=== PATIENT | female | born 1980 | race African-American/Black ===

== ENCOUNTER 2019-09-11 06:28 | Observation (INO) | payer OTHER, SELFPAY ==
[2019-09-11] VITALS (27 sets, daily range): BP systolic 120–150; BP diastolic 53–90; PULSE 80–85; RESP 20; TEMP 36.7–36.8; O2SAT 96–100; BMI 70.4
--- NOTE | ~2019-09-11 | US_ITS ---
US right upper quadrant INDICATION: Right upper quadrant pain PROCEDURE: Realtime right upper abdominal ultrasound. COMPARISON: CT dated 11/11/2011 and ultrasound dated 11/11/2011 FINDINGS: Pancreas is echogenic, nonspecific. No discrete pancreatic mass identified. Liver echotext ure is increased, consistent with hepatic steatosis. There is normal directional flow in the portal vein. There are gallstones. Common bile duct measures 6 mm. No sonographic Soliman's sign. IMPRESSION: 1: Cholelithiasis. 2: Hepatic steatosis. Reviewed, dictated and finalized at location A.
--- NOTE | ~2019-09-11 | NM_ITS ---
EXAMINATION: NM hepatobiliary w pharm DATE: 09/11/2019 16:42 INDICATION: Epigastric pain. COMPARISON: None. TECHNIQUE: 4.8 mCi Tc-99m mebrofenin (Choletec) was administered intravenously. Scintigraphic images of the abdomen were obtained for one hour. 3.8 mcg sincalide (Kinevac) was administered by slow intr avenous infusion, and imaging was continued for 30 minutes. Gallbladder ejection fraction was calcula gerson by the technologist. FINDINGS: There is normal clearance of radiotracer from the blood pool. There is homogeneous tracer uptake by t he liver. Activity progresses to the gallbladder and bowel. The gallbladder ejection fraction (GBEF) is 0% (normal 10-90%, but most patient with gallbladder dysfunction have GBEF < 35% which does overl ap with the normal range). IMPRESSION: 1. Decreased gallbladder ejection fraction which can be seen with gallbladder dysfunction or chronic cholecystitis in the appropriate clinical setting. Reviewed, dictated and finalized at location A.
[2019-09-11 07:07] LABS: Basophils Percent Auto 0.5 % (0.2-1.2); Eosinophils Absolute Auto 0.1 K/mm3 (0-0.3); Eosinophils Percent Auto 2.5 % (0-4.4); Hematocrit 37.9 % (37.0-47.0); Hemoglobin 11.8 g/dL (12.0-15.0); Immature Granulocyte Absolute 0.02 K/mm3 (0.00-0.031); Immature Granulocyte Percent A 0.4 % (0-0.5); Lymphocytes Absolute Auto 1.64 K/mm3 (0.9-3.2); Lymphocytes Percent Auto 29.4 % (18.3-44.2); Mean Corpuscular HGB Conc 31.1 g/dl (32-36); Mean Corpuscular Hemoglobin 27.8 pg (26-34); Mean Corpuscular Volume 89.2 fl (80-100); Mean Platelet Volume 9.8 fl (7.4-10.4); Monocytes Absolute Auto 0.4 K/mm3 (0.1-0.6); Monocytes Percent Auto 6.6 % (2.6-8.5); Neutrophils Absolute Auto 3.4 K/mm3 (1.3-6.7); Neutrophils Percent Auto 60.6 % (45.5-73.1); Platelet Count Result 368 k/mm3 (150-375); Red Blood Count 4.25 M/mm3 (4.2-5.4); Red Cell Distribution Width 16.4 % (11.5-14.5); White Blood Count 5.6 K/mm3 (4.5-10.0)
[2019-09-11 07:25] LABS: Alanine Aminotransferase 492 U/L (4-35); Albumin Level 4.1 g/dL (3.5-5.1); Alkaline Phosphatase 167 U/L (38-126); Aspartate Amino Transferase 452 U/L (14-36); Bilirubin,Total 1.1 mg/dL (0.2-1.3); Blood Urea Nitrogen 8 mg/dL (7-17); Calcium 8.5 mg/dL (8.4-10.2); Carbon Dioxide 35 mmol/L (22-30); Chloride 100 mmol/L (98-107); Estimated Glomerular Filt Rate > 60; Glucose 164 mg/dL (65-105); Lipase 116 U/L (23-300); Potassium 3.5 mmol/L (3.4-5.0); Sodium 138 mmol/L (137-145)
--- NOTE | 2019-09-11 07:38 | ED.ABDPAIN ---
HPI - Abdominal Pain General Chief Complaint: Abdominal Pain Stated Complaint: abd pain Time Seen by Provider: 09/11/19 07:06 History of Present Illness HPI narrative: Patient is a 39-year-old female who presents the ER with epigastric/right upper quadrant abdominal pain. Ongoing for the last 2 to 3 days. Currently 6/10 on a pain scale. Radiates to her back. Occasionally worsens with eating. Reports mild improvement when she takes Aleve or Tylenol. She decided to get evaluated because she also takes Coumadin and if she takes Aleve for too long that could be problematic. Patient reports she has known cholelithiasis and is going to have a cholecystectomy when she has a weight loss surgery in December in [facility]. Patient reports no fevers or chills or sweats. She has been without nausea or vomiting. Sometimes pain improves with passing gas. Related Data Home Medications Medication Instructions Recorded Confirmed aspirin 81 mg PO DAILY 09/11/19 09/11/19 bupropion HCl 100 mg PO BID 09/11/19 09/11/19 furosemide 80 mg PO BID 09/11/19 09/11/19 losartan 50 mg PO DAILY 09/11/19 09/11/19 metoprolol tartrate 50 mg PO BID 09/11/19 09/11/19 potassium chloride 20 meq PO BID 09/11/19 09/11/19 warfarin 12.5 mg PO DAILY 09/11/19 09/11/19 Allergies Allergy/AdvReac Type Severity Reaction Status Date / Time latex Allergy Unknown Rash Verified 09/11/19 07:54 Review of Systems Review of Systems: All systems reviewed & are unremarkable except as noted in HPI and below Constitutional: Constitutional: Denies chills and Denies fever(s) ENT: Denies nasal congestion and Denies sore throat Cardiovascular: Cardiovascular: Denies chest pain and Denies radiating jaw, neck or arm pain Respiratory: Respiratory: Denies cough, Denies dyspnea and Denies wheezing Gastrointestinal: Gastrointestinal: Reports abdominal pain, Denies diarrhea, Denies nausea and Denies vomiting Genitourinary: Genitourinary: Denies hematuria, Denies nocturia and Denies dysuria [facility] Past Medical History Medical History (Updated 09/11/19 @ 18:36 by Zeb Dsouza MD) Chronic anemia Surgical History Surgical History (Updated 09/11/19 @ 07:42 by Zeb Dsouza MD) History of section History of mitral valve replacement with mechanical valve Family History Family History (Updated 09/11/19 @ 12:56 by Nikki Canales RN) Mother Hypertension Social History Social History (Updated 09/11/19 @ 07:42 by Zeb Dsouza MD) Smoking status: Never smoker Second hand tobacco smoke exposure: Yes Alcohol intake: current Drinks per week: 2 Substance use: never Gender identity (if verbalized by the patient): Female Spiritual care concerns: No Exam Narrative: Exam Narrative: GENERAL: Well-appearing, morbidly obese, and in no acute distress. HEAD: Normocephalic, atraumatic. CHEST: Clear to auscultation. No respiratory distress. HEART: Regular rate and rhythm. Mechanical clicking of the mitral valve. Normal peripheral pulses. ABDOMEN: Soft, moderate tenderness in right upper quadrant and tenderness with guarding, nondistended, normal active bowel sounds. EXTREMITIES: Normal range of motion. No edema. SKIN: Warm, dry, no rash. NEURO: Alert and oriented x3. PSYCH: Normal mood and affect. Course Course Emergency Course: Patient with persistent pain on reexam. Discussed with Dr. Allen. Admit for obvious and HIDA scan given significant elevation in hepatic enzymes. Vital Signs Vital signs: Vital Signs Temperature 98.1 F 09/11/19 06:36 Pulse Rate 85 09/11/19 06:36 Respiratory Rate 09/11/19 06:36 Blood Pressure 150/90 H 09/11/19 06:36 Pulse Oximetry 100 09/11/19 06:36 Temperature 98.2 F 09/11/19 13:16 Pulse Rate 80 09/11/19 13:16 Respiratory Rate 09/11/19 13:16 Blood Pressure 138/89 09/11/19 13:16 Pulse Oximetry 100 09/11/19 13:16 MDM - Abdominal Pain Lab Data
[2019-09-11] MEDS: MORPHINE SULFATE 4 MG/ML INJ IV PUSH (07:49)
[2019-09-11 07:56] LABS: INR 4.3; Prothrombin Time 40.7 Seconds (11.1-14.7)
[2019-09-11 08:05] LABS: Partial Thromboplastin Time 35.1 SECONDS (22.3-36.8)
[2019-09-11 09:11] LABS: Add Urine Microscopic? YES; Appearance Urine Cloudy (Clear); Bacteria Urine 3+ /hpf; Bilirubin Urine 1+ (Negative); Calcium Oxalate Crystals Urine Many /hpf; Color Urine Amber (Yellow); Glucose Urine UA Negative (Negative); Ketones Urine Negative (Negative); Leukocyte Esterase Ur Negative LEU/UL (Negative); Mucus Urine Moderate /lpf; Nitrate Urine Negative (Negative); Protein Urine 2+ mg/dL (Negative); Squamous Epithelial Cell Urine Many /hpf (Few)
[2019-09-11 09:14] LABS: Blood Urine Negative (Negative)
[2019-09-11 09:40] LABS: Monoscreen Negative (Negative); Negative Monotest Control Negative (Negative); Positive Monotest Control Positive (Positive)
[2019-09-11 10:08] LABS: Hepatitis B Surface Antigen Negative (Negative)
[2019-09-11 10:13] LABS: HAV RESULT Negative (Negative); Hepatitis B Core IgM Result Negative (Negative)
[2019-09-11 10:25] LABS: Hepatitis C Virus Antibody Negative (Negative)
--- NOTE | 2019-09-11 12:10 | PC.NURSE ---
This patient, Mary Batista, was admitted to Medical Room 250-01. Patient/family oriented to hospital policies and general routines including ID bracelet, bed and alarms, visiting hours, pain management, procedures, bathroom and other care routines, personal items, smoking policy, room service/diet, and visiting hours. Valuables list has been completed. Information on how to activate the Rapid Response Team has been discussed. Patient/Family are encouraged to report perceived risks to care and to ask questions if they do not understand what they are told or what they should do.
--- NOTE | 2019-09-11 13:25 | PC.NURSE ---
Call to oil house attendant Ramiro Rueda for assistance with new peripheral IV placement. Per oil house attendant he will be to floor.
[2019-09-11] MEDS: SODIUM CHLORIDE 0.9% IV 1,000 ML 125 ML IV CONT (16:44)
--- NOTE | 2019-09-11 17:22 | PC.NURSE ---
Patient requesting to leave against medical advice at this time. Voicing concerns she does not feel comfortable at this hospital with her pastor being at outside facility. Encouraged patient to stay and explained if she chooses to leave hospital at this time it is considered against medical advice of the doctor and she could sustain injury from such discharge. Patient was informed if she leaves facility her condition may worsen and she could experience permanent injuries or even . Risks and potential damages discussed. PIV discontinued and patient signed document for leaving against medical advice. Shelley Lang NP notified of patient signing AMA paperwork.
--- NOTE | 2019-09-11 18:05 | PC.NURSE ---
Patient left AMA at 1805. Ambulated to personal vehicle for transport.
== END 2019-09-11 18:05 | disposition left against medical advice (07) ==
LOC: ANHED 07:06 → ANH2MED 11:58
PROVIDERS: General Practice; Admitting Provider Family Medicine; Emergency Provider Emergency Medicine; Visit Provider Family Medicine
DX: K80.20 Calculus of gallbladder without cholecystitis without obstruction (principal); K76.0 Fatty (change of) liver, not elsewhere classified; R74.0 Nonspecific elevation of levels of transaminase and lactic acid dehydrogenase [LDH]; Z79.01 Long term (current) use of anticoagulants
CPT/HCPCS: 36415; 76705; 78227; 80053; 80074; 81001; 81025; 83690; 85025; 85610; 85730; 86308; 87086; 87088; 96374; 99285; A9537; G0378; G0379; J2270; J2805; J7030

== ENCOUNTER → 2019-10-13 13:26 | Outpatient (CLI) | payer OTHER, SELFPAY ==
--- NOTE | ~2019-10-13 | XR_ITS ---
EXAMINATION: XR chest 2V DATE: 10/13/2019 13:54 INDICATION: Cardiomegaly. Preop. TECHNIQUE: Frontal and lateral views of the chest were obtained on 3 radiographs. COMPARISON: Chest CT 02/19/2018, chest 2 views 12/23/2018 FINDINGS: There is no pneumonia, pleural effusion, or pneumothorax. The heart size is normal. There a re changes of heart valve replacement. IMPRESSION: 1. Cardiomegaly. Reviewed, dictated and finalized at location A. IMPRESSION: 1. Cardiomegaly.
== END ==
DX: I10 Essential (primary) hypertension (principal); I51.7 Cardiomegaly; D50.9 Iron deficiency anemia, unspecified; I34.0 Nonrheumatic mitral (valve) insufficiency; E66.01 Morbid (severe) obesity due to excess calories
CPT/HCPCS: 71046

== ENCOUNTER 2019-10-26 01:41 | Outpatient (CLI) | payer OTHER, SELFPAY ==
[2019-10-26 19:35] LABS: SARS-CoV-2 RNA PCR Negative
== END 2019-10-26 01:42 | disposition home or self-care (01) ==
LOC: ANHCOVIDDT 01:41
DX: Z01.812 Encounter for preprocedural laboratory examination (principal); Z11.59 Encounter for screening for other viral diseases
CPT/HCPCS: 87635; C9803; U0003

== ENCOUNTER 2019-11-17 07:56 | Outpatient (CLI) | payer OTHER, SELFPAY ==
--- NOTE | 2019-11-17 | ECG_ITS ---
Measurements Intervals [place] Rate: 86 P: 77 CO: 148 QRS: -1 QRSD: 94 T: 94 QT: 396 QTc: 476 Interpretive Statements SINUS RHYTHM WITH SINUS ARRHYTHMIA DELAYED PRECORDIAL R/S TRANSITION NONSPECIFIC ST & T-WAVE ABNORMALITY- HIGH LATERAL LEADS BASELINE WANDER- I, II, III, V1-V2 BORDERLINE ECG Electronically Signed On 11-17-2019 10:10:33 CDT by Ari Dave D.O.
== END 2019-11-17 07:57 | disposition home or self-care (01) ==
DX: I10 Essential (primary) hypertension (principal); D50.9 Iron deficiency anemia, unspecified; I34.0 Nonrheumatic mitral (valve) insufficiency; E66.01 Morbid (severe) obesity due to excess calories; Z68.45 Body mass index [BMI] 70 or greater, adult
CPT/HCPCS: 93005

== ENCOUNTER 2019-11-18 11:44 | Outpatient (CLI) | payer OTHER, SELFPAY ==
[2019-11-18 13:50] LABS: Iron 51 ug/dL (37-170)
[2019-11-18 14:02] LABS: Percent Iron Saturation 11 % (20-50)
[2019-11-18 14:24] LABS: Folic Acid 5.8 ng/mL (2.76->20)
== END 2019-11-18 11:45 | disposition home or self-care (01) ==
LOC: ANHLAB 11:48
DX: E11.9 Type 2 diabetes mellitus without complications (principal); D64.9 Anemia, unspecified
CPT/HCPCS: 36415; 82607; 82746; 83540; 83550; 84681

== ENCOUNTER 2019-12-25 02:04 | Outpatient (CLI) | payer OTHER, SELFPAY ==
[2019-12-25 17:59] LABS: SARS-CoV-2 RNA PCR Negative
== END 2019-12-25 02:05 | disposition home or self-care (01) ==
LOC: ANHCOVIDDT 02:05
PROVIDERS: Visit Provider Internal Medicine Critical Care Medicine
DX: Z01.812 Encounter for preprocedural laboratory examination (principal); Z20.828 Contact with and (suspected) exposure to other viral communicable diseases
CPT/HCPCS: 87635; C9803; U0003

== ENCOUNTER 2020-01-08 00:51 | Outpatient (CLI) | payer OTHER, SELFPAY ==
[2020-01-08 17:37] LABS: SARS-CoV-2 RNA PCR Negative
== END 2020-01-08 00:52 | disposition home or self-care (01) ==
LOC: ANHCOVIDDT 00:52
PROVIDERS: Visit Provider Internal Medicine Critical Care Medicine
DX: Z01.812 Encounter for preprocedural laboratory examination (principal); Z20.828 Contact with and (suspected) exposure to other viral communicable diseases
CPT/HCPCS: 87635; C9803; U0003

== ENCOUNTER 2020-01-11 11:03 | Outpatient (CLI) | payer OTHER, SELFPAY ==
--- NOTE | 2020-02-07 08:40 | WPDSLEEPSTUD ---
Sleep Study Date of Study: 01/11/20 Ordering Provider: Lyric Ann APRN Interpreting Physician: Whitney Menon MD Sleep Study Type: CPAP Titration Height: 1.7 m Weight: 184.159 kg Body Mass Index: 63.6 Neck Circumference: 50.8 cm Kinta: 8 Reason for Sleep Study History of sleep apnea, now having bariatric surgery and having a sleep study as part of this process [facility] in [facility] sleep study on 10/29/2019 showed AHI of 24 per hour, 29% of the night spent with oxygen saturation below 90%, lowest saturation 62%. APAP was recommended. Sleep History Mary Batista is a 39 year old female with a prior history of sleep apnea. She is having bariatric surgery and required having a sleep study as part of the process. She has been on CPAP in the past. She does not awaken from sleep feeling short of breath, rarely awakens at night with heartburn and belching or coughing. She occasionally snores, it is never loud enough that others complain about it. She occasionally has trouble sleep with a cold. She rarely wakes up gasping for breath at night. She does not have breathing problems at night observed by others. She does not sweat excessively at night. She does not notice her heart pounding or beating irregularly at night. She frequently falls asleep during the day, rarely involuntarily, never while driving. She does not fall asleep during physical effort, does not have loss of muscle tone with strong emotion, does not have daytime difficulties due to excessive sleepiness and does not feel paralyzed on waking or falling asleep. She occasionally has vivid dreamlike scenes upon awakening or falling asleep. She is never afraid to go to sleep. She does not have nightmares. She occasionally remembers her dreams. She does not have racing thoughts. She occasionally feels sad or depressed. She frequently has anxiety. She frequently has muscular tension. She does not notice parts of her body jerking, she does not kick at night, does not have probably aching feelings in her legs and does not have leg pain at night. She does not have morning jaw pain. She frequently grinds her teeth during sleep. She occasionally has bothered by pain during the day but never wakes up with pain during the night. She occasionally wakes up feeling stiff in the morning was sore achy muscles. She does not have pain in the neck and spine. She has headaches fatigue and insomnia. Normal bedtime is 12 midnight to 1:00 a.m. taking about an hour to fall asleep. She wakes for 5 times for urination. She wakes the morning at 5:00 a.m.. On the weekends she stays up an hour later goes to bed at 1 or 2:00 a.m. and wakes up at 7:00 a.m.. She does take naps. A short nap may be refreshing. Habits: Caffeine 1 cup of coffee a day. Alcohol 1 glass at night. She is a never smoker but is exposed to secondhand smoke. [facility] Past Medical History Medical History (Updated 02/07/20 @ 09:01 by Whitney Menon MD) Anxiety Chronic anemia Depression Hypertension Surgical History Surgical History (Updated 02/07/20 @ 08:56 by Whitney Menon MD) History of section History of mitral valve replacement with mechanical valve 04/22/2018 S/P tubal ligation Family History Family History (Updated 02/07/20 @ 08:57 by Whitney Menon MD) Mother Hypertension Grandparent Diabetes mellitus FH: lung cancer Rheumatoid arthritis Social History Social History Smoking status: Never smoker Second hand tobacco smoke exposure: Yes Alcohol intake: current Drinks per week: 2 Substance use: never Gender identity (if verbalized by the patient): Female Spiritual care concerns: No Medications Home Medications Medication Instructions Recorded Confirmed Type aspirin 81 mg PO DAILY 09/11/19 09/11/19 History bupropion HCl 100 mg PO BID 09/11/19 09/11/19 History furosemide
[2020-02-07 09:10] VITALS: BMI 63.6
== END 2020-01-11 11:04 ==
LOC: ANHCSM 03-15 11:04
DX: G47.33 Obstructive sleep apnea (adult) (pediatric) (principal)
CPT/HCPCS: 95811

== ENCOUNTER 2020-04-28 10:07 | Outpatient (CLI) | payer OTHER, SELFPAY ==
[2020-04-28 10:38] LABS: Basophils Percent Auto 0.4 % (0.2-1.2); Eosinophils Absolute Auto 0.1 K/mm3 (0-0.3); Eosinophils Percent Auto 1.1 % (0-4.4); Hematocrit 37.6 % (37.0-47.0); Hemoglobin 11.4 g/dL (12.0-15.0); Immature Granulocyte Absolute 0.03 K/mm3 (0.00-0.031); Immature Granulocyte Percent A 0.4 % (0-0.5); Lymphocytes Absolute Auto 2.03 K/mm3 (0.9-3.2); Mean Corpuscular HGB Conc 30.3 g/dl (32-36); Mean Corpuscular Hemoglobin 26.1 pg (26-34); Mean Platelet Volume 9.9 fl (7.4-10.4); Monocytes Absolute Auto 0.4 K/mm3 (0.1-0.6); Monocytes Percent Auto 5.7 % (2.6-8.5); Neutrophils Absolute Auto 4.9 K/mm3 (1.3-6.7); Neutrophils Percent Auto 65.4 % (45.5-73.1); Platelet Count Result 389 k/mm3 (150-375); Red Blood Count 4.37 M/mm3 (4.2-5.4); Red Cell Distribution Width 17.2 % (11.5-14.5); White Blood Count 7.5 K/mm3 (4.5-10.0)
[2020-04-28 15:47] LABS: Add Urine Microscopic? YES; Appearance Urine Clear (Clear); Bilirubin Urine Negative (Negative); Blood Urine Negative (Negative); Color Urine Yellow (Yellow); Glucose Urine UA Negative (Negative); Ketones Urine Negative (Negative); Leukocyte Esterase Ur 1+ LEU/UL (NEGATIVE); Mucus Urine Rare /lpf; Nitrate Urine Negative (Negative); Protein Urine Negative (Negative); RBC Urine 0-2 /hpf (0-2); Specific Grav Ur 1.018 (1.001-1.035); Squamous Epithelial Cell Urine Moderate /hpf (Few); Urobilinogen Urine Negative mg/dL (<2.0); WBC Urine 51-75 /hpf (0-3)
[2020-04-28 16:41] LABS: Hemoglobin A1C 7.2 % (<5.7)
[2020-04-28 16:51] LABS: Alanine Aminotransferase 31 U/L (4-35); Alkaline Phosphatase 83 U/L (38-126); Anion Gap 7 mmol/L (8-16); Aspartate Amino Transferase 37 U/L (14-36); Bilirubin,Total 0.4 mg/dL (0.2-1.3); Blood Urea Nitrogen 12 mg/dL (7-17); Carbon Dioxide 29 mmol/L (22-30); Chloride 103 mmol/L (98-107); Estimated Glomerular Filt Rate > 60; Glucose 150 mg/dL (65-105); Potassium 3.9 mmol/L (3.4-5.0); Sodium 139 mmol/L (137-145)
== END 2020-04-28 10:08 | disposition home or self-care (01) ==
DX: D64.9 Anemia, unspecified (principal); E11.9 Type 2 diabetes mellitus without complications; I10 Essential (primary) hypertension; D50.9 Iron deficiency anemia, unspecified; E66.01 Morbid (severe) obesity due to excess calories; G47.30 Sleep apnea, unspecified
CPT/HCPCS: 36415; 80053; 81001; 83036; 85025; 93005

== ENCOUNTER 2020-04-28 10:52 | Outpatient (CLI) | payer OTHER, SELFPAY ==
--- NOTE | 2020-04-28 11:07 | ECG_ITS ---
Measurements Intervals [place] Rate: 89 P: 59 HI: 165 QRS: 6 QRSD: 91 T: 109 QT: 419 QTc: 510 Interpretive Statements SINUS RHYTHM BORDERLINE ST-T WAVE ABNORMALITY- HIGH LATERAL LEADS BASELINE ARTIFACT- I, V3 BORDERLINE ECG Electronically Signed On 04-28-2020 11:22:53 [employer] by Ari Dave D.O.
== END 2020-04-28 10:53 | disposition home or self-care (01) ==
LOC: ANHCARD 10:56
DX: D50.9 Iron deficiency anemia, unspecified (principal); E66.01 Morbid (severe) obesity due to excess calories; G47.30 Sleep apnea, unspecified
CPT/HCPCS: 93005

== ENCOUNTER 2020-05-18 18:53 | Emergency (ER) | payer OTHER, SELFPAY ==
--- NOTE | ~2020-05-18 | XR_ITS ---
EXAMINATION: XR chest 1V portable DATE: 05/18/2020 20:18 INDICATION: Fatigue. TECHNIQUE: A single frontal view of the chest was obtained. COMPARISON: Chest 2 views 10/13/2019 FINDINGS: There is no pneumonia, pleural effusion, or pneumothorax. Cardiomegaly is noted. There are changes of heart valve replacement. IMPRESSION: 1. Cardiomegaly. Reviewed, dictated and finalized at location A. SQUEAK CHALKER IMPRESSION: 1. Cardiomegaly.
--- NOTE | ~2020-05-18 | CT_ITS ---
EXAMINATION: CT brain wo con DATE: 05/18/2020 21:45 INDICATION: Right-sided headache. TECHNIQUE: Computed tomography (CT) of the head was performed without intravenous contrast. The mA wa s adjusted according to patient size. Iterative reconstruction technique was employed. The dose-lengt h product was 681.00 mGy-cm. COMPARISON: Head CT 03/07/2013 FINDINGS: There is no intracranial hemorrhage, acute infarction, or abnormal intracranial mass lesion . The ventricles are normal in size. The orbits are normal. The paranasal sinuses are clear. The mast oid air cells are normal. IMPRESSION: 1. Normal brain. Reviewed, dictated and finalized at location A. [employer] IMPRESSION: 1. Normal brain.
[2020-05-18 18:59] VITALS: BP 123/73; PULSE 78; RESP 18; TEMP 36.1; O2SAT 98
--- NOTE | 2020-05-18 20:03 | ECG_ITS ---
Measurements Intervals [place] Rate: 77 P: 57 FL: 165 QRS: -1 QRSD: 94 T: 120 QT: 408 QTc: 464 Interpretive Statements SINUS RHYTHM VENTRICULAR PREMATURE COMPLEX DELAYED PRECORDIAL R/S TRANSITION BORDERLINE ST-T WAVE ABNORMALITY- HIGH LATERAL LEADS BASELINE ARTIFACT- I, III, AVR, AVL, V1 BORDERLINE ECG Electronically Signed On 05-19-2020 6:46:13 [employer] by Ari Dave D.O.
[2020-05-18 20:51] LABS: Basophils Percent Auto 0.5 % (0.2-1.2); Eosinophils Absolute Auto 0.1 K/mm3 (0-0.3); Eosinophils Percent Auto 1.2 % (0-4.4); Hematocrit 39.9 % (37.0-47.0); Hemoglobin 12.4 g/dL (12.0-15.0); Immature Granulocyte Absolute 0.02 K/mm3 (0.00-0.031); Immature Granulocyte Percent A 0.3 % (0-0.5); Lymphocytes Absolute Auto 2.04 K/mm3 (0.9-3.2); Lymphocytes Percent Auto 30.8 % (18.3-44.2); Mean Corpuscular HGB Conc 31.1 g/dl (32-36); Mean Corpuscular Hemoglobin 26.8 pg (26-34); Mean Corpuscular Volume 86.2 fl (80-100); Mean Platelet Volume 10.3 fl (7.4-10.4); Monocytes Absolute Auto 0.5 K/mm3 (0.1-0.6); Monocytes Percent Auto 6.8 % (2.6-8.5); Neutrophils Percent Auto 60.4 % (45.5-73.1); Platelet Count Result 348 k/mm3 (150-375); Red Blood Count 4.63 M/mm3 (4.2-5.4); Red Cell Distribution Width 17.5 % (11.5-14.5); White Blood Count 6.6 K/mm3 (4.5-10.0)
--- NOTE | 2020-05-18 20:53 | ED.GENADULT ---
HPI - General Adult General Chief complaint: Unspecified Stated complaint: feel like im dehydrated Time Seen by Provider: 05/18/20 19:56 Source: patient Mode of arrival: ambulatory Limitations: no limitations History of Present Illness HPI narrative: This is a 40 year old female with history of DM, hypertension, morbid obesity, mitral valve replacement on coumadin who presents for evaluation of possible dehydration. She is scheduled for weight loss surgery on Friday. She has been on a mostly liquid diet for 2 weeks. She states she is not drinking the protein shakes that she was instructed to drink. Her sister recommended she come to ER because she is worried she is dehydrated. Patient reports intermittent right side headaches that have been occurring a long time. She denies having a headache now. She complained of jitteriness and fatigue since being on this diet. She denies associated nausea, vomiting, chest pain, diarrhea, abdominal pain. She is on coumadin due to having a mechanical valve. She stopped taking her coumadin 2 days ago under the instruction of her doctors. She is due to start lovenox tomorrow. She reports she normally drinks juice and sodas but she has not since starting this diet. Related Data Home Medications Medication Instructions Recorded Confirmed aspirin 81 mg PO DAILY 09/11/19 09/11/19 bupropion HCl 100 mg PO BID 09/11/19 09/11/19 furosemide 80 mg PO BID 09/11/19 09/11/19 losartan 50 mg PO DAILY 09/11/19 09/11/19 metoprolol tartrate 50 mg PO BID 09/11/19 09/11/19 potassium chloride 20 meq PO BID 09/11/19 09/11/19 warfarin 12.5 mg PO DAILY 09/11/19 09/11/19 Allergies Allergy/AdvReac Type Severity Reaction Status Date / Time latex Allergy Unknown Rash Verified 09/11/19 07:54 Review of Systems Review of Systems: All systems reviewed & are unremarkable except as noted in HPI and below Constitutional: Constitutional: Denies body ache(s), Denies chills and Reports fatigue Eyes: Eyes: Reports blurry vision ENT: Reports headache(s) and Denies nasal congestion Cardiovascular: Cardiovascular: Denies chest pain, Denies chest pain at rest, Denies chest pain with activity, Denies rapid heart rate and Denies dyspnea Respiratory: Respiratory: Denies cough, Denies hemoptysis and Denies pain with cough Gastrointestinal: Gastrointestinal: Denies abdominal pain Neurologic: Reports headache(s), Denies lack of coordination, Denies focal weakness and Denies numbness PMFSH Past Medical History Medical History (Updated 05/19/20 @ 00:00 by Vesta Kapadia) Anxiety Chronic anemia Depression Hypertension Surgical History Surgical History (Updated 02/07/20 @ 08:56 by Whitney Menon MD) History of section History of mitral valve replacement with mechanical valve 04/22/2018 S/P tubal ligation Family History Family History (Updated 02/07/20 @ 08:57 by Whitney Menon MD) Mother Hypertension Grandparent Diabetes mellitus FH: lung cancer Rheumatoid arthritis Social History Social History Smoking status: Never smoker Second hand tobacco smoke exposure: Yes Alcohol intake: current Drinks per week: 2 Substance use: never Gender identity (if verbalized by the patient): Female Spiritual care concerns: No Exam Narrative: Exam Narrative: GENERAL: Well-appearing, well-nourished, and in no acute distress. obese HEAD: Normocephalic, atraumatic EYES: PERRLA and EOMI, conjunctiva clear without discharge EARS: TM's clear bilaterally without erythema or dullness NOSE: Nares clear, no rhinorrhea or epistaxis THROAT:Mucous membranes moist, Oropharynx normal without erythema, exudate, peritonsillar swelling or fluctuance NECK: Supple, without lymphadenopathy or mass RESPIRATORY: No respiratory distress, Airway patent, Respirations non-labored, Clear to auscultation without rales, rhonchi or wheez
[2020-05-18 21:00] LABS: INR 1.7
[2020-05-18 21:01] LABS: Partial Thromboplastin Time 29.1 SECONDS (22.3-36.8)
[2020-05-18 21:02] LABS: Potassium 3.7 mmol/L (3.4-5.0)
[2020-05-18 21:03] LABS: Alanine Aminotransferase 40 U/L (4-35); Albumin Level 3.9 g/dL (3.5-5.1); Alkaline Phosphatase 70 U/L (38-126); Anion Gap 3 mmol/L (8-16); Aspartate Amino Transferase 51 U/L (14-36); Bilirubin,Total 0.5 mg/dL (0.2-1.3); Blood Urea Nitrogen 7 mg/dL (7-17); Calcium 8.8 mg/dL (8.4-10.2); Carbon Dioxide 35 mmol/L (22-30); Chloride 100 mmol/L (98-107); Estimated CRCL calculation 168 ml/min; Estimated Glomerular Filt Rate > 60; Glucose 164 mg/dL (65-105); Magnesium 1.9 mg/dL (1.6-2.3); Sodium 138 mmol/L (137-145)
[2020-05-18 22:30] LABS: Add Urine Microscopic? YES; Appearance Urine Cloudy (Clear); Bacteria Urine Trace /hpf; Bilirubin Urine Negative (Negative); Blood Urine Negative (Negative); Color Urine Yellow (Yellow); Glucose Urine UA Negative (Negative); Ketones Urine Negative (Negative); Leukocyte Esterase Ur Negative LEU/UL (Negative); Nitrate Urine Negative (Negative); Protein Urine 1+ mg/dL (Negative); RBC Urine 0-2 /hpf (0-2); Specific Grav Ur 1.027 (1.001-1.035); Squamous Epithelial Cell Urine Moderate /hpf (Few); WBC Urine 0-3 /hpf
[2020-05-18 22:45] VITALS: BP 127/84; PULSE 78; RESP 16; TEMP 36.9; O2SAT 98
== END 2020-05-18 22:46 | disposition home or self-care (01) ==
PROVIDERS: Emergency Provider General Practice; PCP Family Medicine
DX: R53.83 Other fatigue (principal); G43.909 Migraine, unspecified, not intractable, without status migrainosus; R74.01 Elevation of levels of liver transaminase levels; Z79.01 Long term (current) use of anticoagulants; E11.9 Type 2 diabetes mellitus without complications; I10 Essential (primary) hypertension; Z95.2 Presence of prosthetic heart valve; E66.01 Morbid (severe) obesity due to excess calories; Z68.44 Body mass index [BMI] 60.0-69.9, adult; Z79.82 Long term (current) use of aspirin; F41.9 Anxiety disorder, unspecified; F32.9 Major depressive disorder, single episode, unspecified; D64.9 Anemia, unspecified; I51.7 Cardiomegaly; I49.3 Ventricular premature depolarization; R94.31 Abnormal electrocardiogram [ECG] [EKG]
CPT/HCPCS: 36415; 70450; 71045; 80053; 81001; 81025; 83735; 85025; 85610; 85730; 93005; 99284

== ENCOUNTER 2020-05-19 14:08 | Outpatient (CLI) | payer OTHER, SELFPAY ==
[2020-05-20 19:43] LABS: SARS-CoV-2 RNA PCR Negative
== END 2020-05-19 14:09 | disposition home or self-care (01) ==
LOC: CHSLAB 14:10
PROVIDERS: Visit Provider Family Medicine
DX: Z01.818 Encounter for other preprocedural examination (principal); Z20.822 Contact with and (suspected) exposure to COVID-19
CPT/HCPCS: C9803; U0003; U0005

== ENCOUNTER 2020-06-22 09:33 | Outpatient (CLI) | payer OTHER, SELFPAY ==
[2020-06-22 10:04] LABS: Hematocrit 39.4 % (37.0-47.0); Hemoglobin 12.5 g/dL (12.0-15.0); Mean Corpuscular HGB Conc 31.7 g/dl (32-36); Mean Corpuscular Hemoglobin 26.9 pg (26-34); Mean Corpuscular Volume 84.9 fl (80-100); Mean Platelet Volume 10.1 fl (7.4-10.4); Platelet Count Result 234 k/mm3 (150-375); Red Blood Count 4.64 M/mm3 (4.2-5.4); Red Cell Distribution Width 16.7 % (11.5-14.5)
[2020-06-22 10:16] LABS: Anion Gap 3 mmol/L (8-16); Blood Urea Nitrogen 11 mg/dL (7-17); Calcium 8.2 mg/dL (8.4-10.2); Carbon Dioxide 33 mmol/L (22-30); Chloride 99 mmol/L (98-107); Estimated Glomerular Filt Rate > 60; Glucose 124 mg/dL (65-105); Sodium 135 mmol/L (137-145)
[2020-06-22 10:23] LABS: Prealbumin 19.8 mg/dL (17.6-36.0)
[2020-06-22 11:10] LABS: Iron 75 ug/dL (37-170)
[2020-06-22 11:19] LABS: Percent Iron Saturation 18 % (20-50)
[2020-06-22 11:59] LABS: Vitamin D 25 Hydroxy 20.2 ng/mL
[2020-06-25 10:44] LABS: Vitamin B1 29 nmol/L (8-30)
== END 2020-06-22 09:34 | disposition home or self-care (01) ==
PROVIDERS: PCP Family Medicine
DX: Z98.84 Bariatric surgery status (principal)
CPT/HCPCS: 36415; 80048; 82306; 82607; 82728; 83540; 83550; 84134; 84425; 85027

== ENCOUNTER 2021-03-23 08:45 | Emergency (ER) | payer OTHER, SELFPAY ==
[2021-03-23 08:57] VITALS: BP 150/81; PULSE 77; RESP 18; TEMP 36.7; O2SAT 100
--- NOTE | 2021-03-23 09:05 | ED.EYEPROB ---
HPI - Eye Problem General Chief complaint: Eye Problems Stated complaint: Swollen Eye Time Seen by Provider: 03/23/21 09:05 Source: patient Mode of arrival: ambulatory Limitations: no limitations History of Present Illness HPI Narrative: 40-year-old female presents to the [facility] with left eye pain and swelling that started sometime last night. Woke up with swollen, intermittent blurry vision. Normally wears contacts. chief complaint: eye pain and eye redness Related Data Home Medications Medication Instructions Recorded Confirmed aspirin 81 mg PO DAILY 09/11/19 03/23/21 bupropion HCl 100 mg PO BID 09/11/19 03/23/21 furosemide 80 mg PO BID 09/11/19 03/23/21 losartan 50 mg PO DAILY 09/11/19 03/23/21 metoprolol tartrate 50 mg PO BID 09/11/19 03/23/21 potassium chloride 20 meq PO BID 09/11/19 03/23/21 warfarin 12.5 mg PO DAILY 09/11/19 03/23/21 Allergies Allergy/AdvReac Type Severity Reaction Status Date / Time latex Allergy Unknown Rash Verified 09/11/19 07:54 Review of Systems Review of Systems: All systems reviewed & are unremarkable except as noted in HPI and below Constitutional: Constitutional: Reports no additional constitutional complaints, Denies chills and Denies fever(s) Eyes: Eyes: Reports as per HPI, Denies blurry vision, Denies exophthalmos, Denies change in vision, Reports eye discharge, Reports irritation, Reports itchy eyes, Denies loss of vision, Denies eye pain, Reports requires corrective lenses, Denies photophobia and Denies spots in vision ENT: Reports system reviewed and no additional complaints, except as documented Cardiovascular: Cardiovascular: Reports no additional cardiovascular complaints Respiratory: Respiratory: Reports no additional respiratory complaints Gastrointestinal: Gastrointestinal: Reports no additional gastrointestinal complaints Musculoskeletal: Musculoskeletal: Reports no additional musculoskeletal complaints Integumentary/Breasts: Skin/Breast: Reports system reviewed and no additional complaints, except as docu Neurologic: Reports system reviewed and no additional complaints, except as documented Psychiatric: Psychiatric: Reports no additional psychiatric complaints Allergic/Immunologic: Allergic/Immunologic: Reports no additional allergic/immunologic complaints PMFSH Past Medical History Medical History Anxiety Chronic anemia Depression Hypertension Surgical History Surgical History History of section History of mitral valve replacement with mechanical valve 04/22/2018 S/P tubal ligation Family History Family History Mother Hypertension Grandparent Diabetes mellitus FH: lung cancer Rheumatoid arthritis Social History Social History Smoking status: Never smoker Second hand tobacco smoke exposure: Yes Alcohol intake: current Drinks per week: 2 Substance use: never Gender identity (if verbalized by the patient): Female Spiritual care concerns: No Comments At the time of my signature, I reviewed and agree with the nursing past medical, surgical, social, and family history. There is no relevant family history pertinent to the patient complaint. Exam HENMT: Head: normal to inspection Eyes: Alignment and Position: alignment normal Conjunctivae: conjunctival abnormality left conjunctival injection and discharge purulent Cornea: corneas abnormal on the left fluorescein used and other (red); without abrasions, without diffuse punctate uptake, with no foreign body noted and without ulcerations Pupils: Equal, round and reactive pupils present EOM: EOMs intact bilaterally Neck: Neck: normal visual inspection, no lymphadenopathy and no meningeal signs Chest: Chest palpation & inspection: normal inspection of the chest Resp:
[2021-03-23] MEDS: TETRACAINE HCL 0.5% OPHTH SOLN 4 ML BTL 1 DROP EACH EYE (10:08)
[2021-03-23] MEDS: FLUORESCEIN SOD 1 MG/STRIP EACH EYE (10:09)
== END 2021-03-23 09:38 | disposition home or self-care (01) ==
PROVIDERS: Emergency Provider Nurse Practitioner
DX: H10.9 Unspecified conjunctivitis (principal); I10 Essential (primary) hypertension; F41.9 Anxiety disorder, unspecified; F32.9 Major depressive disorder, single episode, unspecified; Z79.82 Long term (current) use of aspirin; Z79.01 Long term (current) use of anticoagulants
CPT/HCPCS: 99213; A9270; G0463

== ENCOUNTER 2021-06-26 09:18 | Emergency (ER) | payer OTHER, SELFPAY ==
[2021-06-26 09:28] VITALS: BP 128/66; PULSE 59; RESP 16; TEMP 36.9; O2SAT 98
--- NOTE | 2021-06-26 09:37 | ED.EAR ---
HPI - Ear Problem General Chief complaint: Ear Stated complaint: ear pain/double vision Time Seen by Provider: 06/26/21 09:37 Source: patient, RN notes reviewed and old records reviewed Mode of arrival: ambulatory Limitations: no limitations History of Present Illness HPI Narrative: 41-year-old female presents to the [facility] with complaints of right ear pain for the last 2 days. Patient reports feeling like there is water behind her ears. Had been using a Q-tip to try to get the water out. Denies fevers, sinus congestion. No other treatment besides using a Q-tip prior to arrival Has a history of open heart surgery. MD Complaint: ear pain Related Data Home Medications Medication Instructions Recorded Confirmed aspirin 81 mg PO DAILY 09/11/19 06/26/21 bupropion HCl 100 mg PO BID 09/11/19 06/26/21 furosemide 80 mg PO BID 09/11/19 06/26/21 losartan 50 mg PO DAILY 09/11/19 06/26/21 metoprolol tartrate 50 mg PO BID 09/11/19 06/26/21 potassium chloride 20 meq PO BID 09/11/19 06/26/21 warfarin 12.5 mg PO DAILY 09/11/19 06/26/21 Allergies Allergy/AdvReac Type Severity Reaction Status Date / Time latex Allergy Unknown Rash Verified 06/26/21 09:43 Review of Systems Review of Systems: All systems reviewed & are unremarkable except as noted in HPI and below Constitutional: Constitutional: Reports no additional constitutional complaints, Denies chills and Denies fever(s) Eyes: Eyes: Reports no additional eye complaints ENT: Reports as per HPI, Denies change in voice, Denies dental pain, Denies vertigo, Denies dizziness and Denies throat swelling Comments: Ear pain, right Cardiovascular: Cardiovascular: Reports no additional cardiovascular complaints, Denies chest pain and Denies dyspnea Respiratory: Respiratory: Reports no additional respiratory complaints, Denies cough and Denies dyspnea Gastrointestinal: Gastrointestinal: Reports no additional gastrointestinal complaints, Denies abdominal pain, Denies nausea and Denies vomiting Musculoskeletal: Musculoskeletal: Reports no additional musculoskeletal complaints Integumentary/Breasts: Skin/Breast: Reports system reviewed and no additional complaints, except as docu Neurologic: Reports system reviewed and no additional complaints, except as documented, Denies vertigo and Denies dizziness Psychiatric: Psychiatric: Reports no additional psychiatric complaints Allergic/Immunologic: Allergic/Immunologic: Reports no additional allergic/immunologic complaints and Denies throat swelling PMFSH Past Medical History Medical History Anxiety Chronic anemia Depression Hypertension Surgical History Surgical History History of section History of mitral valve replacement with mechanical valve 04/22/2018 S/P tubal ligation Family History Family History Mother Hypertension Grandparent Diabetes mellitus FH: lung cancer Rheumatoid arthritis Social History Social History Smoking status: Never smoker Second hand tobacco smoke exposure: Yes Alcohol intake: current Drinks per week: 2 Substance use: never Gender identity (if verbalized by the patient): Female Spiritual care concerns: No Comments At the time of my signature, I reviewed and agree with the nursing past medical, surgical, social, and family history. There is no relevant family history pertinent to the patient complaint. Exam Const: General: healthy appearing and no acute distress Nutritional Appearance: well nourished Orientation/consciousness: patient oriented x3 Limitations: no limitations HENMT: Head: normal to inspection Ears: external ears normal, TM normal on the left, mastoids normal, no periauricular adenopathy, Abnormal EAC present erythema (With abrasions throug
== END 2021-06-26 09:50 | disposition home or self-care (01) ==
PROVIDERS: Emergency Provider Nurse Practitioner
DX: H66.001 Acute suppurative otitis media without spontaneous rupture of ear drum, right ear (principal); S00.411A Abrasion of right ear, initial encounter; X58.XXXA Exposure to other specified factors, initial encounter; I10 Essential (primary) hypertension; F41.9 Anxiety disorder, unspecified; F32.A Depression, unspecified; D64.9 Anemia, unspecified; Z79.01 Long term (current) use of anticoagulants; Z79.82 Long term (current) use of aspirin
CPT/HCPCS: 99213; G0463

== ENCOUNTER 2022-09-16 12:11 | Emergency (ER) | payer OTHER, SELFPAY ==
[2022-09-16 12:19] VITALS: BP 143/72; PULSE 77; RESP 16; TEMP 36.1; O2SAT 100
--- NOTE | 2022-09-16 12:47 | ED.URI ---
HPI - URI/Sore Throat General Chief Complaint: Upper Respiratory Infection Stated Complaint: Sore throat Time Seen by Provider: 09/16/22 12:46 Source: patient and RN notes reviewed Mode of arrival: ambulatory Limitations: no limitations History of Present Illness HPI Narrative: 42-year-old female presents with concern for sore throat, nasal congestion, painful swallowing that started about 3 days ago. She denies cough, body aches, fever, chills. Reports 2 of her kids has similar symptoms. She has not taken any medications for her symptoms. MD elicited complaint: cough and sore throat Related Data Home Medications Medication Instructions Recorded Confirmed aspirin 81 mg chewable tablet 81 mg PO DAILY 09/11/19 06/26/21 bupropion HCl 100 mg tablet,12 hr 100 mg PO BID 09/11/19 06/26/21 sustained-release furosemide 80 mg tablet 80 mg PO BID 09/11/19 06/26/21 losartan 50 mg tablet 50 mg PO DAILY 09/11/19 06/26/21 metoprolol tartrate 50 mg tablet 50 mg PO BID 09/11/19 06/26/21 potassium chloride 10 mEq 20 meq PO BID 09/11/19 06/26/21 tablet,extended release warfarin 5 mg tablet 12.5 mg PO DAILY 09/11/19 06/26/21 ergocalciferol (vitamin D2) 1,250 09/16/22 mcg (50,000 unit) capsule ferrous sulfate 325 mg (65 mg mg 09/16/22 iron) tablet (FeroSul) Allergies Allergy/AdvReac Type Severity Reaction Status Date / Time latex Allergy Unknown Rash Verified 09/16/22 12:23 Review of Systems Review of Systems: CONSTITUTIONAL: Denies malaise, chills, sweats, or fever. EYES: Denies visual changes, redness, or discharge. ENT: Reports rhinorrhea, congestion, sore throat. Denies sinus pain, otalgia CARDIOVASCULAR: Denies chest pain, palpitations, or edema. RESPIRATORY: Denies cough. Denies dyspnea. GASTROINTESTINAL: Denies abdominal pain, nausea, vomiting, diarrhea SKIN: Denies rash or itching. MUSCULOSKELETAL: Denies myalgia. NEUROLOGIC: Denies headache. All systems reviewed & are unremarkable except as noted in HPI and below PMFSH Past Medical History Medical History Anxiety Chronic anemia Depression Hypertension Surgical History Surgical History History of section History of mitral valve replacement with mechanical valve 04/22/2018 S/P tubal ligation Family History Family History Mother Hypertension Grandparent Diabetes mellitus FH: lung cancer Rheumatoid arthritis Social History Social History Smoking status: Never smoker Second hand tobacco smoke exposure: Yes Alcohol intake: current Drinks per week: 2 Substance use: never Gender identity (if verbalized by the patient): Female Spiritual care concerns: No Comments At time of signature, agree with nursing past medical, surgical, social and family history. There is no relevant family history pertinent to the presenting complaint Exam Narrative: GENERAL: Well-appearing, well-nourished, and in no acute distress. HEAD: Normocephalic EYES: PERRLA, conjunctivae clear ENT: Nares clear, turbinates edematous and erythematous, clear discharge. Mucous membranes moist. TM pearly osorio with dull light reflex bilaterally; no tragal tenderness. Oropharynx not erythematous without lesions. Tonsils not enlarged and without exudate, no drooling, no hoarseness, no trismus, uvula midline. NECK: Supple. No lymphadenopathy CHEST: Clear to auscultation, breath sounds equal. No wheezing, rhonchi, rales, or stridor. No respiratory distress, speaks in full sentences. HEART: Regular rate and rhythm. No murmur heard. SKIN: Warm, dry, no rash. NEURO: Alert and oriented x3. PSYCH: Normal mood and affect Course Course Emergency Course: Patient is aware of diagnosis, understands and agrees to treatment plan. Anticipatory guidance
== END 2022-09-16 12:59 | disposition home or self-care (01) ==
PROVIDERS: Emergency Provider Nurse Practitioner; PCP Family Medicine
DX: J06.9 Acute upper respiratory infection, unspecified (principal); F41.9 Anxiety disorder, unspecified; F32.A Depression, unspecified; I10 Essential (primary) hypertension; Z79.82 Long term (current) use of aspirin
CPT/HCPCS: 87081; 87880; 99213; G0463

== ENCOUNTER 2022-09-18 17:52 | Emergency (ER) | payer OTHER, SELFPAY ==
--- NOTE | 2022-09-18 17:58 | ED.URI ---
HPI - URI/Sore Throat General Chief Complaint: Upper Respiratory Infection Stated Complaint: Sore throat; pain in ears Time Seen by Provider: 09/18/22 18:14 Source: patient and RN notes reviewed Mode of arrival: ambulatory Limitations: no limitations History of Present Illness HPI Narrative: 42-year-old female presents with concern for ongoing sore throat and worsening ear pain. Reports she was seen here 2 days ago and had negative strep at that time. Reports since then her ears have become full and painful. She reports she has been taking Flonase and antihistamine without relief. MD elicited complaint: sore throat and other (Ear pain) Related Data Home Medications Medication Instructions Recorded Confirmed aspirin 81 mg chewable tablet 81 mg PO DAILY 09/11/19 09/18/22 bupropion HCl 100 mg tablet,12 hr 100 mg PO BID 09/11/19 09/18/22 sustained-release furosemide 80 mg tablet 80 mg PO BID 09/11/19 09/18/22 losartan 50 mg tablet 50 mg PO DAILY 09/11/19 09/18/22 metoprolol tartrate 50 mg tablet 50 mg PO BID 09/11/19 09/18/22 potassium chloride 10 mEq 20 meq PO BID 09/11/19 09/18/22 tablet,extended release warfarin 5 mg tablet 12.5 mg PO DAILY 09/11/19 09/18/22 ergocalciferol (vitamin D2) 1,250 1,250 mcg DIRECTED 09/16/22 09/18/22 mcg (50,000 unit) capsule ferrous sulfate 325 mg (65 mg 325 mg DIRECTED 09/16/22 09/18/22 iron) tablet (FeroSul) Allergies Allergy/AdvReac Type Severity Reaction Status Date / Time latex Allergy Unknown Rash Verified 09/16/22 12:23 Review of Systems Review of Systems: CONSTITUTIONAL: Denies malaise, chills, sweats, or fever. EYES: Denies visual changes, redness, or discharge. ENT: Reports rhinorrhea, congestion, otalgia and sore throat. CARDIOVASCULAR: Denies chest pain, palpitations, or edema. RESPIRATORY: Reports cough. Denies dyspnea. GASTROINTESTINAL: Denies abdominal pain, nausea, vomiting, diarrhea SKIN: Denies rash or itching. MUSCULOSKELETAL: Denies myalgia. NEUROLOGIC: Denies headache. All systems reviewed & are unremarkable except as noted in HPI and below PMFSH Past Medical History Medical History Anxiety Chronic anemia Depression Hypertension Surgical History Surgical History History of section History of mitral valve replacement with mechanical valve 04/22/2018 S/P tubal ligation Family History Family History Mother Hypertension Grandparent Diabetes mellitus FH: lung cancer Rheumatoid arthritis Social History Social History Smoking status: Never smoker Second hand tobacco smoke exposure: Yes Alcohol intake: current Drinks per week: 2 Substance use: never Gender identity (if verbalized by the patient): Female Spiritual care concerns: No Comments At time of signature, agree with nursing past medical, surgical, social and family history. There is no relevant family history pertinent to the presenting complaint Exam Narrative: GENERAL: Well-appearing, well-nourished, and in no acute distress. HEAD: Normocephalic EYES: PERRLA, conjunctivae clear ENT: Nares clear, turbinates edematous and erythematous, clear discharge. Mucous membranes moist. Left tM pearly osorio with dull light reflex, right TM erythematous; no tragal tenderness. Oropharynx not erythematous without lesions. Tonsils not enlarged and without exudate, no drooling, no hoarseness, no trismus, uvula midline. NECK: Supple. No lymphadenopathy CHEST: Clear to auscultation, breath sounds equal. No wheezing, rhonchi, rales, or stridor. No respiratory distress, speaks in full sentences. HEART: Regular rate and rhythm. No murmur heard. SKIN: Warm, dry, no rash. NEURO: Alert and oriented x3. PSYCH: Normal mood and affect Course Course Emergency
[2022-09-18 17:59] VITALS: BP 151/87; PULSE 82; RESP 18; TEMP 36.1; O2SAT 99
== END 2022-09-18 18:26 | disposition home or self-care (01) ==
PROVIDERS: Emergency Provider Nurse Practitioner; PCP Family Medicine
DX: H66.91 Otitis media, unspecified, right ear (principal); I10 Essential (primary) hypertension; F41.9 Anxiety disorder, unspecified; F32.A Depression, unspecified; Z79.01 Long term (current) use of anticoagulants; Z95.2 Presence of prosthetic heart valve
CPT/HCPCS: 99213; G0463